=== PATIENT | male | born 1960 | race Caucasian/White ===

== ENCOUNTER 2016-05-18 18:39 | Emergency (ER) | payer OTHER ==
[2016-05-18] MEDS ORDERED: Ciprofloxacin TAB* 500 MG PO ONE (18:54)
[2016-05-18] MEDS ORDERED: metroNIDAZOLE TAB* 250 MG PO ONE (18:55)
[2016-05-18 19:00] VITALS: BP 127/80
--- NOTE | 2016-05-18 19:29 | UC ---
Abdominal Pain Male HPI - HPI Summary HPI Summary: ONSET OF PERIUMBILICAL PAIN YESTERDAY THAT LOCALIZED TO THE LLQ. HAS SOME MILD NAUSEA AND DECREASED APPETITE. H/O DIVERTICULITIS WITH LAST FLARE ABOUT A YEAR AND A HALF AGO. SX FEEL THE SAME. NO FEVER, DIARRHEA OR URINARY SX. NO BLOOD PER RECTUM. SX WORSE WHEN DRIVING OVER BUMPY ROADS. - History of Current Complaint Chief Complaint: UCAbdominalPain Stated Complaint: ABDOMINAL PAIN Time Seen by Provider: 05/18/16 18:54 Hx Obtained From: Patient Onset/Duration: Gradual Onset, Lasting Days, Still Present Timing: Constant Severity Initially: Moderate Severity Currently: Moderate Pain Intensity: 5 Pain Scale Used: 0-10 Numeric Location: Discrete At: LLQ Radiates: No Character: Sharp Aggravating Factor(s):: Movement Alleviating Factor(s): Nothing Associated Signs And Symptoms: Positive: Nausea. Negative: Diaphoresis, Fever, Back Pain, Constipation, Blood in Stool, Urinary Symptoms, Decreased Appetite, Vomiting, Diarrhea - Allergies/Home Medications Allergies/Adverse Reactions: Allergies Allergy/AdvReac Type Severity Reaction Status Date / Time Aspirin [ASA] Allergy Intermediate Swelling Verified 05/18/16 18:54 Tetracycline Allergy Intermediate Hives Verified 05/18/16 18:54 PMH/Surg Hx/FS Hx/Imm Hx Endocrine History Of: Denies: Diabetes Cardiovascular History Of: Denies: Hypertension, Myocardial Infarction Respiratory History Of: Denies: COPD, Asthma GI/ History Of: Denies: Renal Disease - Surgical History Surgical History: Yes Surgery Procedure, Year, and Place: T&A. RIGHT ear surgery - Family History Known Family History: Positive: Hypertension - Social History Alcohol Use: Weekly Substance Use Type: None Smoking Status (MU): Never Smoked Tobacco Have You Smoked in the Last Year: No - Immunization History Most Recent Influenza Vaccination: 2016 Most Recent Tetanus Shot: UNSURE Hx Tetanus, Diphtheria Vaccination: Yes Vaccination Up to Date: Yes Review of Systems Constitutional: Negative Respiratory: Negative Cardiovascular: Negative Gastrointestinal: Abdominal Pain, Other - NAUSEA Genitourinary: Negative All Other Systems Reviewed And Are Negative: Yes Physical Exam Triage Information Reviewed: Yes Appearance: Well-Appearing, No Pain Distress, Well-Nourished Vital Signs: Initial Vital Signs Temp 98.2 F 05/18/16 18:56 Pulse 66 03/05/17 18:56 Resp 18 05/18/16 18:56 BP 127/80 05/18/16 18:56 Pulse Ox 99 05/18/16 18:56 Vital Signs Reviewed: Yes Eyes: Positive: Conjunctiva Clear ENT: Positive: Hearing grossly normal Neck: Positive: Supple, Nontender, No Lymphadenopathy Respiratory Exam: Normal Cardiovascular Exam: Normal Abdomen Description: Positive: Soft, Other: - TTP LLQ. NO REBOUND OR RIGIDITY. Negative: CVA Tenderness (R), CVA Tenderness (L), Distended, Guarding Bowel Sounds: Positive: Present Musculoskeletal: Positive: No Edema Neurological: Positive: Alert Skin: Negative: rashes Abd Pain Male Course/Dx - Differential Dx/Clinical Impression Provider Diagnoses: DIVERTICULITIS Discharge - Discharge Plan Condition: Stable Disposition: HOME Prescriptions: Ciprofloxacin TAB* [Cipro Tab*] 500 mg PO BID #19 tab Metronidazole [Flagyl 500 MG TAB] 500 mg PO TID #29 tab Patient Education Materials: Diverticulitis (ED) Referrals: Ariel Case MD [Medical Doctor] - If Needed Additional Instructions: CLEAR LIQUID DIET UNTIL SYMPTOMS ARE IMPROVED. IF YOUR SYMPTOMS DO NOT IMPROVE WITH DIETARY MODIFICATION AND ANTIBIOTICS GO TO THE ER WITHOUT FAIL FOR FURTHER EVALUATION.
== END 2016-05-18 19:15 | disposition home or self-care (01) ==
LOC: UCEAST 18:39
DX: K57.92 Diverticulitis of intestine, part unspecified, without perforation or abscess without bleeding (principal); Z88.6 Allergy status to analgesic agent; Z88.1 Allergy status to other antibiotic agents
CPT/HCPCS: 99212; A9270-GY; G0463

== ENCOUNTER 2019-05-15 18:22 | Emergency (ER) | payer OTHER ==
[2019-05-15] MEDS ORDERED: NS 0.9% 1000 ML** 1,000 ML IV ONE (19:56)
--- NOTE | 2019-05-15 19:56 | ED ---
Abdominal Pain/Male - HPI Summary HPI Summary: Patient is a 59 y/o M presenting to [facility] accompanied by with a cc of intermittent episodes of sudden sharp midline abdominal pain with constant dullness initially onset around 1600 yesterday. He reports a history of diverticulitis with pain usually in the L abd, but when his pain began yesterday , its been primarily in the middle of the abd and somewhat into the R. He did take Cipro and Flagyl today, which he has for diverticulitis. He states some small BMs. He endorses low-grade fever at home and testicular discomfort primarily with ambulation but no dysuria, burning with urination, or hematuria. He notes that he had some hematuria with diverticulitis previously. Pain is currently rated 2/10 in severity, aggravated with coughing. He denies any chest or back pains. Last colonoscopy was about 3 years ago without abnormalities. No abdominal surgeries. PMHx: angina. Nonsmoker, weekly EtOH, no substance use. Medications reviewed. Allergies noted. - History of Current Complaint Chief Complaint: EDAbdSatinderin Stated Complaint: ABD PAIN PER PT Time Seen by Provider: 05/15/19 19:45 Hx Obtained From: Patient Onset/Duration: Sudden Onset Timing: Constant Severity Initially: Severe Severity Currently: Mild Pain Intensity: 2 Pain Scale Used: 0-10 Numeric Location: Epigastric, Suprapubic, Umbilical Radiates: Yes Radiates to: Other - R abd Character: Sharp, Dull Aggravating Factor(s): Other: - cough, ambulation Alleviating Factor(s): Nothing Associated Signs And Symptoms: Positive: Fever - low-grade at home, Other - testicular discomfort. Negative: Chest Pain, Back Pain, Urinary Symptoms - Allergies/Home Medications Allergies/Adverse Reactions: Allergies Allergy/AdvReac Type Severity Reaction Status Date / Time aspirin Allergy Swelling Verified 05/15/19 18:31 Tetracyclines Allergy Hives Verified 05/15/19 18:32 Home Medications: Home Medications Ciprofloxacin TAB* [Cipro 500 MG TAB*] 500 mg PO BID #19 tab 05/18/16 [Rx] metroNIDAZOLE [Flagyl 500 MG TAB] 500 mg PO TID #29 tab 05/18/16 [Rx] PMH/Surg Hx/FS Hx/Imm Hx Endocrine/Hematology History: Reports: Hx Unexplained Bleeding - MIROHEMATURIA. 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 CURRENT DX HEMATURIA 11/10/12 Denies: Hx Renal Disease Sensory History: Reports: Hx Contacts or Glasses Opthamlomology History: Reports: Hx Contacts or Glasses - Surgical History Surgical History: Yes Surgery Procedure, Year, and Place: T&A. RIGHT ear surgery Infectious Disease History: No Infectious Disease History: Reports: Hx Shingles, Traveled Outside the [place] in Last 30 Days - [place] - Family History Known Family History: Positive: Hypertension - Social History Alcohol Use: Weekly Hx Substance Use: No Substance Use Type: Reports: None Hx Tobacco Use: No Smoking Status (MU): Never Smoked Tobacco Have You Smoked in the Last Year: No Review of Systems Positive: Fever - low-grade Negative: Chest Pain Positive: Abdominal Pain - primarily in umbilical area Positive: other - testicular discomfort. Negative: burning, dysuria, hematuria Negative: Myalgia - back All Other Systems Reviewed And Are Negative: Yes Physical Exam - Summary Physical Exam Summary: Constitutional: Well-developed, Well-nourished, Alert. (-) Distressed Skin: Warm, Dry HENT: Normocephalic; Atraumatic Eyes: Conjunctiva normal Neck: Musculoskeletal ROM normal neck. (-) JVD, (-) Stridor, (-) Nuchal rigidity Cardio: Rhythm regular, rate normal, Heart sounds normal; Intact distal pulses; Radial pulses are 2+ and symmetric. (-) Murmur Pulmonary/Chest wall: Effort normal. (-) Respiratory distress, (-) Wheezes, (-) Rales Abd: Soft, (+) epigastric and suprapubic tenderness, (-) Distension, (+) Voluntary guarding, (-) Rebound Musculoskeletal: (-) Edema Lymph: (-) Cervical adenopathy Neuro: Alert, Oriented x3 Psych: Mood and affect Normal : Nurse Jim in room, No testicular pain or redness Triage Information Reviewed: Yes Vital Signs On Initial Exam: Initial Vitals Temp Pulse Resp BP Pulse Ox 97.6 F 92 16 112/72 95 05/15/19 18:26 05/15/19 18:26 05/15/19 18:26 05/15/19 18:26 05/15/19 18:26 Vital Signs Reviewed: Yes Procedures - Sedation Patient Received Moderate/Deep Sedation with Procedure: No Diagnostics - Vital Signs Vital Signs Temp Pulse Resp BP Pulse Ox 05/15/19 18:26 97.6 F 92 16 112/72 95 - Laboratory Result Diagrams: 05/15/19 20:04 05/15/19 20:04 Lab Statement: Any lab studies that have been ordered have been reviewed, and results considered in the medical decision making process. - CT Abd/Pel CT CT Interpretation Completed By: Radiologist Summary of CT Findings: Impression: There is colonic diverticulosis with abnormal wall thickening and fat stranding in the sigmoid colon consistent with acute diverticulitis without visible abscess or signs of gross perforation. ED physician has reviewed this report. Re-Evaluation - Re-Evaluation First Eval Re-Evaluation Time: 22:50 Comment: Discussed Abd/Pel CT results, he has Cipro/Flagyl at home Abdominal Pain Male Course/Dx - Course Course Of Treatment: 59 y/o male w hx diverticulitis p/w abdominal pain. - VSS NAD. PE w mid abdominal tenderness. Voluntary guarding. Labs w mild leukocytosis. CT shows uncomplicated diverticulosis. Tolerating PO, already on cipro/flagyl. DC w PCP f/u and GI f/u. - Diagnoses Provider Diagnoses: Diverticulitis, Abdominal pain Discharge ED - Sign-Out/Discharge Documenting (check all that apply): Patient Departure - Patient will be discharged home. - Discharge Plan Condition: Stable Disposition: HOME Patient Education Materials: Diverticulitis (ED) Referrals: Eduard Knight MD [Medical Doctor] - 3 Days Ariel Case MD [Primary Care Provider] - 3 Days Additional Instructions: You were seen in the emergency department for abdominal pain. Your CT scan showed diverticulitis. You can take your Cipro and Flagyl, follow-up with your GI doctor. If any studies were not completed at the time of discharge you will be called with the relevant results. Please follow up with your primary care doctor in the next 2-3 days and return to the emergency department for worsening pain, fevers, inability eat or drink, or concerning symptoms. It was a pleasure taking care of you today. - Billing Disposition and Condition Condition: STABLE Disposition: Home - Attestation Statements Document Initiated by Paco: Yes Documenting Scribe: Diane Granados Provider For Whom Paco is Documenting (Include Credential): Dr. Damien Leon MD Scribe Attestation: I, Diane Granados, scribed for Dr. Damien Leon MD on 05/15/19 at 2258. Scribe Documentation Reviewed: Yes Provider Attestation: The documentation as recorded by the Diane benton accurately reflects the service I personally performed and the decisions made by me, Dr. Damien Leon MD Status of Scribheather Document: Viewed
[2019-05-15] MEDS ORDERED: Morphine 4 MG/ML VIAL (1 ml) 4 MG/ML VIAL IV ONE (20:11)
[2019-05-15 20:24] LABS: ABS Basophils 0.1 10^3/ul (0-0.2); ABS Lymphocytes 1.3 10^3/ul (1.0-4.8); ABS Monocytes 1.1 10^3/ul (0-0.8); ABS Neutrophils 8.7 10^3/ul (1.5-7.7); Eosinophil % 0.2 %; Hematocrit 44 % (42-52); Mean Corpuscular HGB Conc 34 g/dL (31-36); Mean Corpuscular Hemoglobin 31 pg (27-31); Mean Corpuscular Volume 90 fL (80-94); Mean Platelet Volume 8.5 fL (7.4-10.4); Nucleated Red Blood Cells % 0.1; Platelet Count 208 10^3/uL (150-450); Red Blood Count 4.89 10^6 /uL (4.18-5.48); Red Cell Distribution Width 14 % (10-15); White Blood Count 11.2 10^3/uL (3.5-10.8)
[2019-05-15 20:34] LABS: Albumin 4.2 g/dL (3.2-5.2); Albumin/Globulin Ratio 1.6 (1-3); BUN/Creatinine Ratio 14.4 (8-20); Calcium 9.1 mg/dL (8.6-10.3); EGFR African American 81.5 (>60); EGFR Non-African American 67.3 (>60); Globulin 2.7 g/dL (2-4); Potassium 3.9 mmol/L (3.5-5.0); Total Bilirubin 0.9 mg/dL (0.2-1.0); Total Protein 6.9 g/dL (6.4-8.9)
[2019-05-15] MEDS ORDERED: Iohexol 300* (CONTRAST) 10 ML SDV IV ONE (21:37)
[2019-05-15 22:59] VITALS: BP 123/71
[2019-05-16 01:57] LABS: C Reactive Protein 50.61 mg/L (<8.01)
== END 2019-05-15 23:07 | disposition home or self-care (01) ==
LOC: ED 18:22
DX: K57.32 Diverticulitis of large intestine without perforation or abscess without bleeding (principal); R10.84 Generalized abdominal pain; R10.13 Epigastric pain; R10.30 Lower abdominal pain, unspecified; Z88.6 Allergy status to analgesic agent; Z88.1 Allergy status to other antibiotic agents
CPT/HCPCS: 36415; 74177; 80053; 83605; 83690; 85025; 86140; 96361; 96374; 99283; J2270; Q9967

== ENCOUNTER 2019-05-15 23:29 | Observation (INO) | payer OTHER ==
[2019-05-15] MEDS ORDERED: Ondansetron INJ* 2 MG/ML VIAL IV ONE (23:36)
[2019-05-15] MEDS ORDERED: NS 0.9% 1000 ML** 1,000 ML IV ONE (23:36)
--- NOTE | 2019-05-15 23:39 | ED ---
Syncope/Near Syncope - HPI Summary HPI Summary: Patient is a 59 y/o M presenting to [facility] accompanied by with cc of two syncopal events immediately [employer]. He reports history of neurocardiogenic syndrome where he passes out with episodes of vomiting. Tonight after being discharged from the ED for diverticulitis, he was in the car on his way home when he suddenly felt nauseous and then had LOC until his woke him up, occurring twice. This is the first time he has experienced syncope without vomiting. He is nauseous in the ED. Symptoms rated 6/10 in severity. PMHx: angina. Nonsmoker, weekly EtOH, no substance use. Medications reviewed. Allergies noted. - History Of Current Complaint Chief Complaint: EDSyncope Time Seen by Provider: 05/15/19 23:35 Hx Obtained From: Patient, Family/Television Producer - Onset/Duration: Lasting Minutes Timing: Frequency Of Episodes - 2 Context: Witnessed, Loss Of Consciousness Activity At Onset: At Rest - sitting in passender seat of car Aggravating Factor(s): Other - felt nauseous Alleviating Factor(s): Nothing Associated Signs And Symptoms: Other - nausea; Negative: vomiting Related History: Similar Episode/Dx as - neurocardiogenic syndrome - Allergies/Home Medications Allergies/Adverse Reactions: Allergies Allergy/AdvReac Type Severity Reaction Status Date / Time aspirin Allergy Swelling Verified 05/15/19 18:31 Tetracyclines Allergy Hives Verified 05/15/19 18:32 Home Medications: Home Medications NK [No Home Medications Reported] 05/16/19 [History Confirmed 05/16/19] PMH/Surg Hx/FS Hx/Imm Hx Endocrine/Hematology History: Reports: Hx Unexplained Bleeding - MIROHEMATURIA. 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 CURRENT DX HEMATURIA 11/10/12 Denies: Hx Renal Disease Sensory History: Reports: Hx Contacts or Glasses Opthamlomology History: Reports: Hx Contacts or Glasses - Surgical History Surgical History: Yes Surgery Procedure, Year, and Place: T&A. RIGHT ear surgery Infectious Disease History: No Infectious Disease History: Reports: Hx Shingles Denies: Traveled Outside the [place] in Last 30 Days - Family History Known Family History: Positive: Hypertension - Social History Alcohol Use: Weekly Hx Substance Use: No Substance Use Type: Reports: None Hx Tobacco Use: No Smoking Status (MU): Never Smoked Tobacco Have You Smoked in the Last Year: No Review of Systems Positive: Nausea. Negative: Vomiting Positive: Syncope - with LOC All Other Systems Reviewed And Are Negative: Yes Physical Exam - Summary Physical Exam Summary: Constitutional: Well-developed, Well-nourished, Alert. (-) Distressed Skin: Warm, Dry HENT: Normocephalic; Atraumatic Eyes: Conjunctiva normal Neck: Musculoskeletal ROM normal neck. (-) JVD, (-) Stridor, (-) Nuchal rigidity Cardio: Rhythm regular, rate normal, Heart sounds normal; Intact distal pulses; Radial pulses are 2+ and symmetric. (-) Murmur Pulmonary/Chest wall: Effort normal. (-) Respiratory distress, (-) Wheezes, (-) Rales Abd: Soft, (+) epigastric and suprapubic tenderness, (-) Distension, (+) Voluntary guarding, (-) Rebound Musculoskeletal: (-) Edema Lymph: (-) Cervical adenopathy Neuro: Alert, Oriented x3 Psych: Mood and affect Normal Triage Information Reviewed: Yes Vital Signs On Initial Exam: Initial Vitals Temp Pulse Resp BP Pulse Ox 0 F 0 0 0/0 0 05/15/19 23:31 05/15/19 23:31 05/15/19 23:31 05/15/19 23:31 05/15/19 23:31 Vital Signs Reviewed: Yes Procedures - Sedation Patient Received Moderate/Deep Sedation with Procedure: No Diagnostics - Vital Signs Vital Signs Temp Pulse Resp BP Pulse Ox 05/15/19 23:31 0 F 0 0 0/0 0 - Laboratory Lab Statement: Any lab studies that have been ordered have been reviewed, and results considered in the medical decision making process. - EKG 0002 Cardiac Rate: NL - 61 BPM EKG Rhythm: Sinus Rhythm EKG Comparison: No Significant Change - Compared to previous in 2016 Summary of EKG Findings: An EKG at 0002 reveals normal sinus rhythm at 61 BPM, T wave flattening in lead III, QTc at 416. No STEMI. Compared to prior in 2016, no significant change. ED physician has reviewed and interpreted this EKG. Re-Evaluation - Re-Evaluation First Eval Re-Evaluation Time: 00:45 Change: Improved Comment: Patient feeling somewhat better, eating a cracker, would prefer not to be admitted Second Eval Re-Evaluation Time: 01:15 Change: Improved Comment: Patient feeling better, orthostatics negative Third Eval Re-Evaluation Time: 01:25 Change: Worse Comment: Patient feels worse with ambulation, plan for admission Course/Dx Course Of Treatment: 59 y/o male diagnosed w diverticulitis p/w syncope and nausea. - VSS NAD. Patient reporting nausea given IVf, zofran. Suspect vasovagal response to vomiting. EKG unremarkable. He would like to try to eat something and walk around ED. - after IVF and zofran still feeling nauseous. D/ w patient admission for observation and he agrees. - Diagnoses Provider Diagnoses: Syncope, Diverticulitis - Physician Notifications Discussed Care of Patient With: Pauly Schumacher - hospitalist Time Discussed With Above Provider: 01:30 Instructed by Provider To: Other - I discussed the patients case with Dr. Schumacher, who accepts the patient for admission. Discharge ED - Sign-Out/Discharge Documenting (check all that apply): Patient Departure - Patient accepted for admission by Dr. Schumacher. - Discharge Plan Condition: Stable Disposition: ADMITTED TO [facility] Referrals: Ariel Case MD [Primary Care Provider] - Additional Instructions: You were seen in the emergency department for . Your labs showed . If any studies were not completed at the time of discharge you will be called with the relevant results. Please follow up with your primary care doctor in the next 2-3 days and return to the emergency department for worsening or concerning symptoms. It was a pleasure taking care of you today. - Billing Disposition and Condition Condition: STABLE Disposition: Admitted to [facility] - Attestation Statements Document Initiated by Scribe: Yes Documenting Scribe: Diane Granados Provider For Whom Scribe is Documenting (Include Credential): Dr. Damien Leon MD Scribe Attestation: I, Diane Granados, scribed for Dr. Damien Leon MD on 05/16/19 at 0138. Scribe Documentation Reviewed: Yes Provider Attestation: The documentation as recorded by the scribe, Dinae Granados accurately reflects the service I personally performed and the decisions made by me, Dr. Damien Leon MD Status of Scribe Document: Viewed
[2019-05-16] MEDS ORDERED: NS 0.9% 1000 ML** 1,000 ML IV ONE (01:06)
[2019-05-16] MEDS ORDERED: Al Hydrox/Mg Hydrox/Simet LIQ* 30 ML UDC PO PRN (01:37)
[2019-05-16] MEDS ORDERED: Morphine INJ* 2 MG/ML 1 ML SYRINGE (TWO MG - NEW SYRINGE VERSION) IV PRN (01:37)
[2019-05-16] MEDS ORDERED: NS 0.9% 1000 ML** 1,000 ML IV SCH (01:45)
[2019-05-16] MEDS ORDERED: Ondansetron INJ* 2 MG/ML VIAL IV PRN (02:12)
[2019-05-16] MEDS ORDERED: HYDROmorphone INJ* 0.5 MG/0.5 ML SYRINGE IV SLOW PU PRN (02:13)
[2019-05-16] MEDS ORDERED: metroNIDAZOLE IV 500 MG/100ML* 500 MG/100 ML BAG IVPB SCH (03:00)
[2019-05-16] MEDS ORDERED: Enoxaparin(*) 40 MG/0.4 ML SYR SUBCUT SCH (03:00)
[2019-05-16] MEDS ORDERED: Ciprofloxacin 400MG IVPREMIX(* 400 MG/200 ML BAG IVPB SCH (03:00)
[2019-05-16 04:00] LABS: Urine Appearance Clear; Urine Bilirubin Negative (Negative); Urine Blood 2+ (Negative); Urine Color Straw; Urine Glucose Negative (Negative); Urine Ketones Negative (Negative); Urine Nitrite Negative (Negative); Urine Protein Negative (Negative); Urine Specific Gravity 1.008 (1.010-1.030); Urine Urobilinogen Negative (Negative)
[2019-05-16 04:05] LABS: Urine Bacteria Absent (Absent); Urine Red Blood Cell Trace(0-2/hpf) (Absent); Urine White Blood Cell Absent (Absent)
--- NOTE | 2019-05-16 05:05 | HP ---
CC: Dr. Case * HISTORY AND PHYSICAL: DATE OF ADMISSION: 05/16/19 TIME OF ADMISSION: 2 o'clock. PRIMARY CARE PHYSICIAN: Dr. Case. CHIEF COMPLAINT: Syncope. HISTORY OF PRESENT ILLNESS: This is a 59-year-old man with history of diverticulitis who presented to the emergency department last evening with sharp abdominal pain. He had history of diverticulitis and had a dose of Cipro and Flagyl at home, which he took on Thursday at noon; however, the severe pain prompted ER visit. He localized the pain to the suprapubic area and described it as very sharp. He had no constipation or diarrhea. No appetite and in the emergency department he had a CT abdomen and pelvis, which confirms the diagnosis of sigmoid diverticulitis. He was discharged to home on p.o. antibiotics; however, when his was driving him home, they were just few minutes away from the hospital when he developed severe nausea and he experienced an episode of syncope. His describes asking him a question to which he did not answer and she looked over and he was unresponsive with his eyes in the back of his head and she shook his coat and he came around and thought he had just fallen to sleep. She felt that he was himself right away and had no seizure activity, though he did urinate his pants. He had no confusion after he woke up. This happened again on their way back to the hospital, each time he was unconscious for seconds and at this time he still has some intermittent suprapubic pain. He received some ondansetron in the emergency department and his nausea is improved. Regarding the syncope, this had happened to him in the past when vomiting. He had a workup by Dr. Pace and she diagnosed him with neurocardiogenic syncope and autonomic dysreflexia and possibly POTS syndrome. He ordered an echocardiogram in 2018, which he thinks he had done but I cannot see the results of this echo. He has had syncope several other times again, but only 1 vomiting and he has had diverticulitis approximately 4 times total and he has been admitted one other time in 2013. He did have a colonoscopy a few years ago, which showed diverticulosis and no other findings. These are per his report. PAST MEDICAL HISTORY: 1. Neurocardiogenic syncope. 2. Autonomic dysreflexia 3. Diverticulitis. 4. Hyperlipidemia. 5. Hearing loss. PAST SURGICAL HISTORY: He had his tonsils removed and ear surgery as a child. HOME MEDICATIONS: He does not take any medications currently. Of note, Dr. Case recently started statin, but self-discontinued them due to muscle cramps. ALLERGIES: ASPIRIN and TETRACYCLINE. SOCIAL HISTORY: He lives at home with his . He has approximately 2 alcoholic drinks per week. He smokes no tobacco and he works as a teacher. FAMILY HISTORY: His mom had diverticulitis. His mom lived to her mid 90s and her dad lived over 100. REVIEW OF SYSTEMS: He did have subjective fevers. No headache, visual changes , auditory changes, falls, chest pain, shortness of breath, recent illness, diarrhea, or constipation. The rest of the review of systems as per the HPI. PHYSICAL EXAMINATION GENERAL: Alert, well appearing middle aged man, in no distress, resting on the bed. His at the bedside. VITAL SIGNS: Temperature 98.1, heart rate 72, respiratory rate 16, pulse ox 94 % on room air. Blood pressure 104/63, his blood pressure when he arrived to the ED the second time nadired at 88/51. His orthostatic vital signs are negative; however, he received 3 L of IV fluids prior to them. HEENT: Pupils are 3 mm bilaterally and reactive to light. Extraocular muscles are intact. His oral mucosa is dry. No nystagmus. NECK: No JVP. No adenopathy. CHEST: He is regular rate and rhythm with no murmurs. His lungs are clear bilaterally. ABDOMEN: Soft and tender to light palpation diffusely but worse in both lower quadrants with the worst pain being in the middle of the lower abdomen. Positive guarding. No rebound or rigidity. No CVA tenderness. His bowel sounds are hypoactive. EXTREMITIES: No edema, rashes, or ulcers. DIAGNOSTIC STUDIES/LAB DATA: White blood cells 11.2, hemoglobin 15, platelets 208. INR 1.08. Sodium 136, potassium 3.9, chloride 104, bicarb 26, BUN 16, creatinine 1.11, glucose 97. CRP 50.6, lipase 10. Imaging: The abdomen and pelvis CT from 05/15/19 shows colonic diverticulosis with abnormal wall thickening and fat stranding in the sigmoid colon consistent with acute diverticulitis without visible abscess or signs of gross perforation and EKG showed normal sinus rhythm, normal axis, normal intervals. No Q waves. No ST or T wave changes. ASSESSMENT AND PLAN: This is a 59-year-old man with history of diverticulitis and syncope who presents to the emergency department with abdominal pain and was found to have diverticulitis. After he was discharged from the emergency department, he developed syncope x2 on the drive home. 1. Syncope. This has been worked up by Dr. Pace and he has been diagnosed with autonomic dysreflexia and neurocardiogenic syncope it is unsurprising that this would be provoked by volume depletion and pain. His orthostatic vital signs are negative in the emergency department; however, he already received IV fluids. His EKG is unremarkable. I will monitor him on telemetry overnight. It seems that Dr. Pace wanted a repeat echocardiogram in 2018, but I cannot find the results of this, so I am repeating his echocardiogram in the morning. I am continuing IV fluid resuscitation and I will defer to the daytime team depending on his clinical course if they feel that Cardiology should be consulted formerly. 2. Acute diverticulitis. He has received 1 dose of p.o. antibiotics so far. I will start him on IV ciprofloxacin and IV metronidazole and control his nausea and pain with symptomatic management. It is possible that his nausea was from the morphine he initially received in the emergency department, so he is not interested in taking IV morphine. We will try Dilaudid but again he is uninterested in taking pain medicines at this time. I will also check a urinalysis to rule out a secondary urinary cause of his pain since there are some components of this but feel different to him and the location is also different. 3. Diet: Clear liquids, this can be advanced as he is able. 4. DVT prophylaxis: Lovenox. 5. Disposition: Admit to [facility]. [id number]/[facility] #: [id number] MTDD
[2019-05-16 06:33] LABS: ABS Lymphocytes 1.3 10^3/ul (1.0-4.8); ABS Monocytes 0.8 10^3/ul (0-0.8); ABS Neutrophils 7.9 10^3/ul (1.5-7.7); Eosinophil % 0.1 %; Hematocrit 37 % (42-52); Hemoglobin 12.6 g/dL (14.0-18.0); Lymphocyte % 13.1 %; Mean Corpuscular HGB Conc 34 g/dL (31-36); Mean Corpuscular Hemoglobin 31 pg (27-31); Mean Corpuscular Volume 90 fL (80-94); Mean Platelet Volume 8.1 fL (7.4-10.4); Platelet Count 164 10^3/uL (150-450); Red Blood Count 4.08 10^6 /uL (4.18-5.48); Red Cell Distribution Width 14 % (10-15); White Blood Count 10.2 10^3/uL (3.5-10.8)
[2019-05-16 06:48] LABS: BUN/Creatinine Ratio 14.4 (8-20); Calcium 8.2 mg/dL (8.6-10.3); EGFR African American 95.2 (>60); EGFR Non-African American 78.7 (>60); Potassium 3.9 mmol/L (3.5-5.0)
--- NOTE | 2019-05-16 10:31 | ECHO ---
*[facility]* [place] [address] Fax #: [phone] Transthoracic Echocardiogram Patient: Shaun Christian : 1960 Study Date: 05/16/2019 Age: 59 Gender: M HR: 64 bpm Height: 71 in /180.3 cm BSA: 2.06 m^2 Weight: 189.6 lb /86.2 kg BMI: 26.5 kg/m^2 *Archivist Political History: * Cata Hussein *Referring Physician: * Pauly Schumacher *Reading Physician: * Aly Milan MD Indications: Syncope. History: Syncope. Risk factors: Dyslipidemia. Conclusions Summary: - Left ventricle: Systolic function is normal. The estimated ejection fraction is 55-60%. Wall motion is normal; there are no regional wall motion abnormalities. - Mitral valve: There is trace regurgitation. - Aortic valve: Transvalvular velocity is within the normal range. There is no evidence of stenosis. - Tricuspid valve: There is trace regurgitation. - Pulmonary arteries: Systolic pressure is within the normal range, estimated to be 29 mm Hg. - Study data: No prior study is available for comparison. Study data: Transthoracic echocardiogram. Procedure: Transthoracic echocardiography was performed. Image quality was good. Complete 2D, spectral Doppler, and color flow Doppler. Location: Bedside. Patient status: Inpatient. Patient room number: 445-1. No prior study is available for comparison. Rhythm: Normal sinus rhythm. Findings Left ventricle: The cavity size is normal. Wall thickness is mildly increased. Systolic function is normal. The estimated ejection fraction is 55-60%. Wall motion is normal; there are no regional wall motion abnormalities. Left ventricular diastolic function parameters are normal. Right ventricle: The cavity size is normal. Systolic function is normal. Ventricular septum: The ventricular septum is normal. Left atrium: The atrium is normal in size. Right atrium: The atrium is normal in size. Mitral valve: The valve is structurally normal. There is no evidence of stenosis. There is trace regurgitation. Aortic valve: The valve is structurally normal. The valve is trileaflet. Cusp separation is normal. Transvalvular velocity is within the normal range. There is no evidence of stenosis. There is no significant regurgitation. Tricuspid valve: The valve is structurally normal. There is no evidence of stenosis. There is trace regurgitation. Pulmonic valve: The valve is structurally normal. There is no evidence of stenosis. There is trace regurgitation. Aorta: The aortic root appears normal. The aortic arch appears normal. Pericardium: There is no significant pericardial effusion. Pulmonary arteries: Systolic pressure is within the normal range, estimated to be 29 mm Hg. Systemic veins: Inferior vena cava: There is (>= 50%) respiratory change in the IVC dimension. Pulmonary veins: The Pulmonary veins appear normal. Measurements Left ventricle Value Ref Aortic valve Value Ref ANNE-MARIE, LAX (L) 3.6 cm 4.2 - 5.8 Peak v, S 1.44 m/sec ----- ESD, LAX 2.5 cm 2.5 - 4.0 VTI, S 30.1 cm ----- FS, LAX 32 % 25 - 43 Mean grad, S 5.0 mm Hg ----- PW, ED, LAX (H) 1.3 cm 0.6 - 1.0 Peak grad, S 8.0 mm Hg ----- E', lat cory, TDI 10.8 cm/sec >=10.0 EL, VTI 2.51 cm^2 ----- E/e', lat cory, 9 EL, Vmax 2.44 cm^2 --- -- TDI Mitral valve Value Ref LVOT Value Ref Peak E 0.99 m/sec ----- Diam, S 2.00 cm Peak A 0.82 m/sec ----- Area 3.1 cm^2 Decel time 185 ms ----- Peak nigel, S 1.12 m/sec Peak grad, D 4.0 mm Hg ----- Peak grad, S 5 mm Hg Peak E/A ratio 1.2 ----- Mean grad, S 3 mm Hg SV 76 ml Pulmonic valve Value Ref Peak v, S 0.89 m/sec ----- Ventricular septum Value Ref Peak grad, S 3.0 mm Hg ----- IVS, ED (H) 1.4 cm 0.6 - 1.0 Tricuspid valve Value Ref Right ventricle Value Ref TR peak v 2.44 m/sec <=2.8 ANNE-MARIE, LAX 2.7 cm Peak RV-RA grad, S 24 mm Hg ----- ANNE-MARIE minor ax, (H) 3.8 cm 1.9 - 3.5 Max TR nigel 2.45 m/sec ----- A4C mid Aortic root Value Ref Left atrium Value Ref Root diam 3.2 cm <4.2 AP dim, ES 4.00 cm 3.00 - 4.00 Ascending aorta Value Ref ML dim, A4C 4.2 cm AAo AP diam, S 3.1 cm ----- SI dim, A4C 5.3 cm Vol/bsa, ES, A/L 21 ml/m^2 16 - 34 Aortic arch Value Ref Arch diam 3.1 cm ----- Right atrium Value Ref SI dim, ES 4.9 cm 3.4 - 5.3 Inferior vena cava Value Ref ML dim, ES, A4C 3.2 cm 2.6 - 4.4 Diam 2.5 cm ----- SI dim, ES, A4C 4.9 cm 3.4 - 5.3 Legend: (L) and (H) valentin values outside specified reference range. Prepared and electronically signed by Aly Milan MD 05/16/2019 10:31
[2019-05-16 11:21] VITALS: BP 101/56
--- NOTE | 2019-05-16 23:25 | DS ---
CC: Dr. Ariel Case * DISCHARGE SUMMARY: DATE OF ADMISSION: 05/16/19 DATE OF DISCHARGE: 05/16/19 PRIMARY CARE PROVIDER: Dr. Ariel Case. ATTENDING PHYSICIAN: Dr. Tom Reynaga.* (DICTATED BY MITCHELL BADILLO NP) PRIMARY DIAGNOSES: 1. Syncope with history of neurocardiogenic syncope and autonomic dysreflexia. 2. Acute diverticulitis. SECONDARY DIAGNOSES: None. STUDIES WHILE IN THE HOSPITAL: 1. EKG on 05/15/19 shows normal sinus rhythm with a rate of 61. No ST changes. 2. Transthoracic echocardiogram on 05/16/19 reads as left ventricular systolic function is normal. The estimated ejection fraction is 55% to 60%, wall motion is normal and there are no regional wall motion abnormalities. There is trace MR. In the aortic valve, transvalvular velocity is within the normal range. There is no evidence of . There is trace TR. Systolic pressure within the pulmonary arteries is within normal range, estimated to be 29 mmHg, no prior studies available for comparison. HISTORY OF PRESENT ILLNESS AND HOSPITAL COURSE: Mr. Christian is a 59-year-old male with a past medical history of neurocardiogenic syncope, autonomic dysreflexia and diverticulitis, who presented to the emergency room on 05/16/19 with complaints of syncope. Please see the history and physical by Dr. Schumacher for complete summary of the events leading up to this hospitalization. In short , the patient was seen in the emergency room earlier in the day on 05/15/19. During that time, he complained of abdominal pain and was diagnosed with acute diverticulitis. He was discharged home on oral antibiotics, although on the drive home, the patient's witnessed a syncopal episode, sounds as though it was only few seconds long. There was no evidence of seizure activity. They presented back to the emergency room. Vital signs were unremarkable in the emergency room and lab work was also unremarkable. The patient was admitted by the hospitalist service. The patient had an uneventful night. He was monitored on telemetry without any evidence of arrhythmia except for some mild bradycardia down into the 50s while sleeping. The patient had an echocardiogram this morning which was normal. Results are noted above. He was given IV hydration overnight. Orthostatic vitals yesterday were negative. The patient reports feeling significantly better today than he did yesterday. At this point, it is suspected that the syncopal episode was likely a manifestation of the patient's known autonomic dysreflexia and neurocardiogenic syncope. The patient was experiencing abdominal pain and nausea, and may have been somewhat volume depleted, which could both be triggering factors. The patient's diverticulitis does not appear severe at this time. There is no white count or fever. He has received IV Cipro and Flagyl while here in the hospital. He has been up and ambulating today without difficulty and would like to go home. On exam, he is alert and oriented x4 with no focal neurological deficits. Heart has a regular rate and rhythm without murmurs, rubs or gallops. Lungs are clear to auscultation without rhonchi, wheezes, or rubs. There is no edema. Abdomen is soft and tender to palpation throughout with normoactive bowel sounds. Mr. Christian is stable for discharge. Most recent vitals are as follows: Temp 97.6, heart rate 56, respiratory rate 16, oxygen saturation 98% on room air, blood pressure 101/56. DISCHARGE MEDICATIONS: New: 1. Ondansetron 4 mg p.o. q.6 hours p.r.n. nausea and vomiting. Continued: 1. Cipro 500 mg p.o. b.i.d. 2. Flagyl 500 mg p.o. t.i.d. DISCHARGE PLAN: Mr. Christian will be discharged home. Activity will be as tolerated. Diet will be regular as tolerated. Medications are noted above. The patient should complete his course of ciprofloxacin and Flagyl, which was previously prescribed to him. I have additionally prescribed a small amount of Zofran should he have any further episodes of nausea. He should remain well hydrated and should try to eat as much as possible as his symptoms allow. He should follow up with his primary care provider in the next 4 to 7 days. He may also need to have a repeat follow up with Cardiology, though I will defer that to the patient's PCP. He should return to the emergency room or nearest hospital for any worsening of symptoms, shortness of breath, lightheadedness, dizziness, chest discomfort, high fevers, chills, night sweats, loss of consciousness, or any other worrisome signs or symptoms. DISCHARGE CONDITION: Stable. DISCHARGE DISPOSITION: Home. This is a summarized report of a complex medical history and hospital stay. For further details, please see the entire medical record. TIME SPENT: Approximately 40 minutes was spent on this discharge. MITCHELL BADILLO NP [id number]/[facility] #: [id number]
== END 2019-05-16 11:30 | disposition home or self-care (01) ==
LOC: ED 23:29 → MEDTELE 05-16 02:12
PROVIDERS: ADMIT Internal Medicine; ATTEND Internal Medicine
DX: R55 Syncope and collapse (principal); K57.92 Diverticulitis of intestine, part unspecified, without perforation or abscess without bleeding; E78.5 Hyperlipidemia, unspecified; H91.90 Unspecified hearing loss, unspecified ear; G90.4 Autonomic dysreflexia; R94.31 Abnormal electrocardiogram [ECG] [EKG]; Z88.6 Allergy status to analgesic agent; Z88.1 Allergy status to other antibiotic agents
CPT/HCPCS: 36415; 80048; 81003; 81015; 85025; 93005; 93306; 96365; 96367; 96372; 96375; 99284; G0378; J0744; J1650; J2405